=== PATIENT | female | born 1990 | race Caucasian/White ===

== ENCOUNTER 2018-12-07 22:38 | Emergency (ER) | payer MEDICAID, OTHER ==
[~2018-12-07] VITALS: Ht 175.3 cm; Wt 100.0 kg
[~2018-12-07 22:38] MED LIST: ARIP15TA2 PO; HYDR50CA10 PO; SERT50TA12 PO; TRAZ-184 PO
[2018-12-08 00:33] VITALS: BP 141/106
[2018-12-08] MEDS ORDERED: CLINDAMYCIN HCL 150 MG CAPSULE PO ONE (02:30)
== END 2018-12-08 02:20 | disposition left against medical advice (07) ==
LOC: EMS 22:39
DX: K08.89 Other specified disorders of teeth and supporting structures (principal); F17.210 Nicotine dependence, cigarettes, uncomplicated; Z86.73 Personal history of transient ischemic attack (TIA), and cerebral infarction without residual deficits; Z88.8 Allergy status to other drugs, medicaments and biological substances

== ENCOUNTER 2019-05-16 17:55 | Emergency (ER) | payer OTHER ==
[~2019-05-16] VITALS: Ht 175.3 cm; Wt 100.0 kg
[~2019-05-16 17:55] MED LIST changes: -ARIP15TA2 PO; -HYDR50CA10 PO; -TRAZ-184 PO
[2019-05-16 18:03] VITALS: BP 138/86
== END 2019-05-16 20:39 | disposition home or self-care (01) ==
LOC: EMS 19:09
DX: K05.10 Chronic gingivitis, plaque induced (principal); L40.9 Psoriasis, unspecified; F15.10 Other stimulant abuse, uncomplicated; F17.210 Nicotine dependence, cigarettes, uncomplicated; Z86.73 Personal history of transient ischemic attack (TIA), and cerebral infarction without residual deficits; Z88.6 Allergy status to analgesic agent; Z88.8 Allergy status to other drugs, medicaments and biological substances
CPT/HCPCS: 99406

== ENCOUNTER 2019-12-01 01:42 | Emergency (ER) | payer OTHER ==
[~2019-12-01] VITALS: Ht 175.3 cm; Wt 102.3 kg
[2019-12-01 01:44] VITALS: BP 130/72
[2019-12-01] MEDS ORDERED: PREN-155 PO (01:52)
== END 2019-12-01 03:36 | disposition left against medical advice (07) ==
LOC: EMS 01:42
DX: N93.9 Abnormal uterine and vaginal bleeding, unspecified (principal); Z53.21 Procedure and treatment not carried out due to patient leaving prior to being seen by health care provider

== ENCOUNTER 2020-08-10 09:56 | Emergency (ER) | payer OTHER ==
[~2020-08-10] VITALS: Ht 180.3 cm; Wt 100.0 kg
[~2020-08-10 09:56] MED LIST changes: +PREN-155 PO; +SERT-158 PO; -SERT50TA12 PO
[2020-08-10] MEDS ORDERED: MethylPREDNISolone SOD SUCC 125 MG/2 ML VIAL IVP ONE (10:15)
[2020-08-10] MEDS ORDERED: ACETAMINOPHEN 500 MG TABLET PO ONE (10:30)
[2020-08-10 12:15] VITALS: BP 107/57
== END 2020-08-10 13:05 | disposition home or self-care (01) ==
LOC: EMS 10:01
DX: R22.0 Localized swelling, mass and lump, head (principal); F17.210 Nicotine dependence, cigarettes, uncomplicated; Z88.8 Allergy status to other drugs, medicaments and biological substances; Z86.73 Personal history of transient ischemic attack (TIA), and cerebral infarction without residual deficits; Z88.6 Allergy status to analgesic agent
CPT/HCPCS: 36415; 84702; 96374; 99283; J2930

== ENCOUNTER 2021-06-26 17:23 | Emergency (ER) | payer OTHER ==
[~2021-06-26] VITALS: Ht 180.3 cm; Wt 90.0 kg
[2021-06-26 17:32] VITALS: BP 127/50
== END 2021-06-26 20:20 | disposition left against medical advice (07) ==
LOC: EMS 17:38
DX: R11.2 Nausea with vomiting, unspecified (principal); Z53.21 Procedure and treatment not carried out due to patient leaving prior to being seen by health care provider

== ENCOUNTER 2023-04-16 21:48 | Emergency (ER) | payer OTHER ==
[~2023-04-16] VITALS: Ht 180.3 cm; Wt 143.0 kg
[~2023-04-16 21:48] MED LIST changes: +CLIN300C58 PO; -PREN-155 PO
[2023-04-16 22:25] VITALS: TEMP 98.4
[2023-04-17] MEDS ORDERED: CIPR500T10 PO (01:55)
[2023-04-17] MEDS ORDERED: CIPOTIC AS (01:55)
[2023-04-17 02:54] VITALS: BP 123/61; PULSE 75; RESP 16
== END 2023-04-17 02:55 | disposition home or self-care (01) ==
LOC: EMS 21:50
DX: H66.91 Otitis media, unspecified, right ear (principal); H60.91 Unspecified otitis externa, right ear; F17.210 Nicotine dependence, cigarettes, uncomplicated; Z91.040 Latex allergy status; Z88.0 Allergy status to penicillin; Z88.6 Allergy status to analgesic agent; Z88.8 Allergy status to other drugs, medicaments and biological substances
CPT/HCPCS: 99283; Z7502

== ENCOUNTER 2023-05-23 21:17 | Emergency (ER) | payer OTHER ==
[~2023-05-23] VITALS: Ht 180.3 cm; Wt 143.2 kg
[~2023-05-23 21:17] MED LIST changes: +CIPOTIC AS; +CIPR500T10 PO; -CLIN300C58 PO
[2023-05-23 21:26] VITALS: TEMP 97.8
[2023-05-23 23:33] LABS: BASOPHILS % (AUTO) 0.6 % (0.0-2.0); EOSINOPHILS % (AUTO) 3.8 % (1.0-6.0); HEMATOCRIT 41.6 % (36-46); HEMOGLOBIN 14.5 g/dL (12.0-16.0); LYMPHOCYTES # (AUTO) 1.9 K/uL (1.0-4.8); LYMPHOCYTES % (AUTO) 21.8 % (22.0-44.0); MEAN CORPUSCULAR HEMOGLOBIN 31.8 pg (26.0-34.0); MEAN CORPUSCULAR HGB CONC 34.8 G/dL (31.0-37.0); MEAN CORPUSCULAR VOLUME 91 fL (80-100); MONOCYTES # (AUTO) 0.5 K/uL (0.1-1.0); MONOCYTES % (AUTO) 5.1 % (2.0-9.0); NEUTROPHILS # (AUTO) 6.1 K/uL (1.8-7.7); NEUTROPHILS % (AUTO) 68.7 % (40.0-70.0); PLATELET COUNT (AUTO) 273 K/uL (150-450); RED BLOOD CELL COUNT(AUTO) 4.56 MIL/uL (4.00-5.20); RED CELL DISTRIBUTION WIDTH 13.1 % (11.5-14.5); WHITE BLOOD COUNT (AUTO) 8.9 K/uL (4.5-11.0)
[2023-05-24 00:02] LABS: ANION GAP 7 mmol/L (8-16); CALCIUM, TOTAL 9.3 mg/dL (8.8-10.5); CARBON DIOXIDE 30 mmol/L (22-29); CHLORIDE 104 mmol/L (98-107); CREATININE 0.78 mg/dL (0.60-1.30); GLOMERULAR FILTR. RATE CALC > 60 mL/min (>60); GLUCOSE,RANDOM 122 mg/dL (70-110); POTASSIUM 3.4 mmol/L (3.5-5.1); SODIUM SERUM 141 mmol/L (136-145); UREA NITROGEN, BLOOD 6 mg/dL (7-18)
[2023-05-24 00:03] LABS: TROPONIN I-HIGH SENSITIVITY 4 ng/L (<51)
[2023-05-24 00:14] LABS: ALANINE AMINOTRANSFERASE 96 U/L (12-78); ALBUMIN 3.1 g/dL (3.4-5.0); ALKALINE PHOSPHATASE 99 U/L (46-116); ASPARTATE AMINOTRANSFERASE 62 U/L (15-37); BILIRUBIN,TOTAL 0.4 mg/dL (0.1-1.0); HCG,QUANTITATIVE < 1 mIU/mL (0-6); LIPASE 31 U/L (16-77); TOTAL PROTEIN, SERUM 6.4 g/dL (6.4-8.2)
[2023-05-24] MEDS: SODIUM CHLORIDE 0.9% 1,000 ML IV ONE (00:35)
[2023-05-24] MEDS: ONDANSETRON HCL 4 MG/2 ML VIAL IVP ONE (00:35)
[2023-05-24] MEDS: KETOROLAC TROMETHAMINE 30 MG/ML VIAL IVP ONE (00:35)
[2023-05-24] MEDS: DIPHENOXYLATE/ATROP 2.5-0.025 MG TABLET PO ONE (00:36)
[2023-05-24] MEDS: ACETAMINOPHEN 500 MG TABLET PO ONE (00:38)
[2023-05-24 00:42] LABS: APPEARANCE,URINE HAZY (CLEAR); BILIRUBIN,URINE NEGATIVE (NEGATIVE); COLOR,URINE YELLOW (YELLOW); GLUCOSE, URINE (UA) NEGATIVE (NEGATIVE); KETONES,URINE NEGATIVE (NEGATIVE); LEUKOCYTE ESTERASE ,URINE MODERATE (NEGATIVE); NITRATE,URINE NEGATIVE (NEGATIVE); OCCULT BLOOD,URINE NEGATIVE (NEGATIVE); PROTEIN,URINE NEGATIVE (NEGATIVE); SPECIFIC GRAVITIY, URINE 1.018 (1.003-1.030); UROBILINOGEN,URINE <=1.0 mg/dL (<=1.0)
[2023-05-24 00:45] LABS: ALCOHOL, URINE DRUG SCREEN NEGATIVE (NEGATIVE); AMPHET/METH SCREEN,URINE NEGATIVE (NEGATIVE); BARBITURATE SCREEN, URINE NEGATIVE (NEGATIVE); BENZODIAZEPINES SCREEN,URINE NEGATIVE (NEGATIVE); CANNABINOID SCREEN,URINE NEGATIVE (NEGATIVE); COCAINE SCREEN,URINE NEGATIVE (NEGATIVE); METHADONE SCREEN, URINE NEGATIVE (NEGATIVE); OPIATE SCREEN,URINE NEGATIVE (NEGATIVE); PHENCYCLIDINE SCREEN,URINE NEGATIVE (NEGATIVE)
[2023-05-24 01:04] LABS: BACTERIA,URINE Many /HPF (None Seen); RBC,URINE None Seen /HPF (0-2); SQUAMOUS EPITHELIAL CELL,UR Moderate /LPF (None Seen)
[2023-05-24 01:30] VITALS: BP 119/72; PULSE 81; RESP 18
[2023-05-24] MEDS ORDERED: ACET-66 PO (01:40)
[2023-05-24] MEDS ORDERED: DIPH-1130 PO (01:40)
[2023-05-24] MEDS ORDERED: CEPH-558 PO (01:40)
[2023-05-24] MEDS ORDERED: ONDA-104 PO (01:40)
== END 2023-05-24 02:00 | disposition home or self-care (01) ==
LOC: EMS 21:17
DX: K52.9 Noninfective gastroenteritis and colitis, unspecified (principal); N39.0 Urinary tract infection, site not specified; K76.0 Fatty (change of) liver, not elsewhere classified; R07.89 Other chest pain; F17.210 Nicotine dependence, cigarettes, uncomplicated; F15.90 Other stimulant use, unspecified, uncomplicated; Z88.0 Allergy status to penicillin; Z91.040 Latex allergy status; Z88.8 Allergy status to other drugs, medicaments and biological substances
CPT/HCPCS: 99285; 71045; 80053; 81001; 83690; 84484; 84702; 85025; 36415; 87086; 87186; 93005; 80307; 96374; 96361; 96375; J1885; J2405; J7030

== ENCOUNTER 2023-06-20 21:34 | Emergency (ER) | payer OTHER ==
[~2023-06-20] VITALS: Ht 180.3 cm; Wt 141.4 kg
[~2023-06-20 21:34] MED LIST changes: +ACET-66 PO; +CEPH-558 PO; +DIPH-1130 PO; +ONDA-104 PO
[2023-06-20 21:40] VITALS: TEMP 98.7
[2023-06-20 22:06] VITALS: BP 119/73; PULSE 71; RESP 18
[2023-06-20] MEDS ORDERED: DOXY-354 PO (22:16)
[2023-06-20] MEDS: KETOROLAC TROMETHAMINE 30 MG/ML VIAL IM ONE (22:21)
== END 2023-06-20 22:34 | disposition home or self-care (01) ==
LOC: EMS 21:34
DX: H00.012 Hordeolum externum right lower eyelid (principal); H60.91 Unspecified otitis externa, right ear; F41.9 Anxiety disorder, unspecified; F31.9 Bipolar disorder, unspecified; F17.210 Nicotine dependence, cigarettes, uncomplicated; F15.90 Other stimulant use, unspecified, uncomplicated; Z88.0 Allergy status to penicillin; Z88.8 Allergy status to other drugs, medicaments and biological substances
CPT/HCPCS: 99283; 96372; J1885

== ENCOUNTER 2023-12-28 15:25 | Emergency (ER) | payer OTHER ==
[~2023-12-28] VITALS: Ht 185.4 cm; Wt 128.2 kg
[~2023-12-28 15:25] MED LIST changes: +DOXY-354 PO
[2023-12-28 15:34] VITALS: BP 96/66; PULSE 96; RESP 18; TEMP 99.1; O2SAT 95
[2023-12-28 15:56] LABS: COVID AG,FIA SOURCE NASAL SWAB
[2023-12-28 16:36] LABS: SARS-COV2 (COVID) ANTIGEN,FIA Negative (Negative)
[2023-12-28 16:37] LABS: INFLUENZA TYPE A NEGATIVE FOR TYPE A (NEGATIVE); INFLUENZA TYPE B NEGATIVE FOR TYPE B (NEGATIVE)
== END 2023-12-28 18:28 | disposition left against medical advice (07) ==
LOC: EMS 15:25
DX: R51.9 Headache, unspecified (principal); R05.9 Cough, unspecified; Z53.21 Procedure and treatment not carried out due to patient leaving prior to being seen by health care provider; Z20.822 Contact with and (suspected) exposure to COVID-19
CPT/HCPCS: 87804